=== PATIENT | female | born 1980 | race Caucasian/White ===

== ENCOUNTER → 2022-06-11 | Outpatient (CLI) | payer OTHER ==
[~2022-06-11] MED LIST: ACET325 PO; ALBU90I INH; AMOX500 PO; ARIP10 PO; ARTHRITIS PAIN650 MG PO; BUPR150ER; BUSP15 PO; CEPH500 PO; CIPR500 PO; CLON.5 PO; CLON1 PO; CODACE30 PO; CODGUAEL PO; CYCL10 PO; DEPAKOTE; DIAZ5 PO; DOCU100 PO; DULO30; ERYT.5TO RIGHTEYE; ESTR.1TPW TOP; FAMO20 PO; FLUNOI IH; GABA300 PO; GABA600 PO; HALO5 PO; HYDACE5 PO; HYDPAM100 PO; IBUP400 PO; IBUP600 PO; IBUP800 PO; IBUPROFEN200 MG PO; LEVSOD150 PO; LORA1 PO; LORA10 PO; MEDICAL MARIJUANA; MEDR10 PO; METCAR500 PO; METHI10 PO; MULVITA PO; MULVITMINE PO; NAPR550 PO; NITR100 PO; OLAN10 PO; OXYACE10 PO; OXYACE5T PO; OXYACE7.5T PO; OXYC20ER PO; PENVK500 PO; PHENA100 PO; PRAZ1 PO; PRAZ2; PRED10 PO; PRED20 PO; PROM25 PO; Prempro 0.3 MG/1 TAB PO; QUET25 PO; RXOXYACE PO; RXTRAM50 PO; SERT100; SERT100 PO; SERT50 PO; SPACER IH; Synthroid125 MCG PO; TOPI100 PO; TRAZ100 PO; TRAZ50 PO; VENL25 PO; VENLAFAXINE HCL75 MG PO; VISTARIL; ZIPR80 PO; ZOLP5 PO; [UNRECOGNIZED DRUG - REMARK]
[2022-06-13 01:11] LABS: CHLAMYDIA TRACHOMATIS, NAA Negative (Negative)
== END | disposition home or self-care (01) ==
LOC: LAB 10:30 → LAB SHORT 10:30
PROVIDERS: Student in an Organized Health Care Education/Training Program
DX: Z11.3 Encounter for screening for infections with a predominantly sexual mode of transmission (principal)
CPT/HCPCS: 87491; 87591

== ENCOUNTER 2022-10-27 17:27 | Emergency (ER) | payer OTHER ==
[~2022-10-27] VITALS: Ht 162.6 cm; Wt 55.8 kg
[2022-10-27] MEDS ORDERED: CEPH500 PO (18:36)
== END 2022-10-27 18:42 | disposition home or self-care (01) ==
LOC: ER 17:27
DX: S61.432A Puncture wound without foreign body of left hand, initial encounter (principal); F17.210 Nicotine dependence, cigarettes, uncomplicated; W27.0XXA Contact with workbench tool, initial encounter; Z88.6 Allergy status to analgesic agent; Z88.8 Allergy status to other drugs, medicaments and biological substances; Z79.890 Hormone replacement therapy; Z79.899 Other long term (current) drug therapy
CPT/HCPCS: 73120; 90714; A9270

== ENCOUNTER → 2024-03-26 | Outpatient (CLI) | payer MEDICARE, OTHER ==
[~2024-03-26] MED LIST changes: +ONDA4ODT MM; +OXYC5 PO
[2024-03-26 08:38] LABS: Source, Urine Clean Catch
[2024-03-26 09:48] LABS: Appearance, Urine Clear (Clear); Bilirubin, Urine Neg (Neg); Blood, Urine Neg (Neg); Color, Urine Yellow (P-Yellow); Glucose Qualitative, Urine Neg (Neg); Ketones, Urine Neg (Neg); Leukocyte Esterase, Urine Neg (Neg); Nitrite, Urine Neg (Neg); Protein, Urine Neg (Neg); Urobilinogen, Urine NORM (Normal)
== END | disposition home or self-care (01) ==
LOC: LAB 08:36 → LAB SHORT 08:36
PROVIDERS: Student in an Organized Health Care Education/Training Program
DX: R10.9 Unspecified abdominal pain (principal); Z13.6 Encounter for screening for cardiovascular disorders; E03.9 Hypothyroidism, unspecified; N95.1 Menopausal and female climacteric states
CPT/HCPCS: 36415; 80053; 80061; 81003; 84443; 85025